=== PATIENT | male | born 1995 | race Caucasian/White ===

== ENCOUNTER 2016-11-21 01:42 | Emergency (ER) | payer OTHER ==
[2016-11-21] MEDS ORDERED: Meclizine TAB* 12.5 MG PO ONE (01:55)
--- NOTE | 2016-11-21 03:09 | ED ---
Adin Valdez Erika, scribed for Andrea Hernandez MD on 11/21/16 at 0303 . Syncope/Near Syncope - HPI Summary HPI Summary: Patient is a 21-year-old male presenting to the ED with a CC of syncopal episode around 00:50 today. 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 Prior to work, pt had a mild headache, which worsened over a few hours. He took 3 ibuprofen, which did not alleviate the pain. He then suddenly became hot and diaphoretic, and states he remembers looking over to a coworker to ask for help. He then remembers waking up on the ground. Pt now reports the headache is still present with photophobia. He also states he becomes dizzy when he opens his eyes and sits up - the room seems like it is spinning. Pt reports he rarely has headaches - he reports 4 in the past 10 years. - History Of Current Complaint Time Seen by Provider: 11/21/16 01:50 Hx Obtained From: Patient Onset/Duration: Sudden Onset, Lasting Minutes, Resolved Timing: Constant Context: Witnessed, Loss Of Consciousness Activity At Onset: Other - Standing Aggravating Factor(s): Nothing Alleviating Factor(s): Spontaneous Resolution Associated Signs And Symptoms: Diaphoresis, Dizzy, Headache - Allergies/Home Medications Allergies/Adverse Reactions: Allergies Allergy/AdvReac Type Severity Reaction Status Date / Time No Known Allergies Allergy Verified 11/21/16 02:58 PMH/Surg Hx/FS Hx/Imm Hx Previously Healthy: Yes Endocrine/Hematology History: Denies: Hx Diabetes Infectious Disease History: Denies: Traveled Outside the [place] in Last 30 Days - Family History Known Family History: Negative: Cardiac Disease, Hypertension, Diabetes - Social History Occupation: Employed Full-time Alcohol Use: None Hx Substance Use: No Substance Use Type: Reports: None Hx Tobacco Use: No Smoking Status (MU): Never Smoked Tobacco Review of Systems Positive: Skin Diaphoresis - and hot Neurological: Other - dizziness Positive: Headache, Syncope All Other Systems Reviewed And Are Negative: Yes Physical Exam Triage Information Reviewed: Yes Vital Signs On Initial Exam: Temp Pulse Resp BP Pulse Ox 99.2 F 78 16 98/60 99 11/21/16 01:56 11/21/16 01:56 11/21/16 01:56 11/21/16 01:56 11/21/16 01:56 Vital Signs Reviewed: Yes Appearance: Positive: Well-Appearing, No Pain Distress Skin: Positive: Warm Head/Face: Positive: Normal Head/Face Inspection Eyes: Positive: EOMI, THALIA, Other: - no nystagmus ENT: Positive: Hearing grossly normal Neck: Positive: Supple Respiratory/Lung Sounds: Positive: Clear to Auscultation, Breath Sounds Present Cardiovascular: Positive: Normal. Negative: Murmur Abdomen Description: Positive: Nontender, Soft Bowel Sounds: Positive: Present Musculoskeletal: Positive: Strength/ROM Intact Neurological: Positive: Sensory/Motor Intact, Alert, Oriented to Person Place, Time Diagnostics - Vital Signs Vital Signs Temp Pulse Resp BP Pulse Ox 11/21/16 01:56 99.2 F 78 16 98/60 99 - Laboratory Lab Statement: Any lab studies that have been ordered have been reviewed, and results considered in the medical decision making process. Re-Evaluation - Re-Evaluation First Eval Re-Evaluation Time: 03:05 Change: Improved Comment: Pt feels improved now, will be discharged Course/Dx Assessment/Plan: A 21 y/o M presents to the ED with c/o dizziness and syncopal episode [facility]. Pt reports that he feels significantly improved in the ED. He will be discharged with follow up from his PCP. - Diagnoses Provider Diagnoses: Dizziness Discharge - Discharge Plan Condition: Improved Disposition: HOME Patient Education Materials: Dizziness (ED) Referrals: [facility] [Outside] Additional Instructions: Please follow up with your PCP The documentation as recorded by the Adin espinoza Erika accurately reflects the service I personally performed and the decisions made by me, Andrea Hernandez MD.
[2016-11-21 03:10] VITALS: BP 101/45
== END 2016-11-21 03:16 | disposition home or self-care (01) ==
LOC: ED 01:42
DX: R42 Dizziness and giddiness (principal)
CPT/HCPCS: 99282; A9270-GY